=== PATIENT | male | born 1940 | race Caucasian/White ===

== ENCOUNTER 2017-06-22 06:12 | Day surgery (SDC) | payer OTHER ==
[~2017-06-22] VITALS: Ht 198.1 cm; Wt 153.6 kg
[~2017-06-22 06:12] MED LIST: ACET325 PO; AMLO5 PO; AMOCLA875 PO; ASPI325 PO; Amlodipine Besy10 MG PO; BP MED; BYDUREON2 MG SQ; CEPH500 PO; CLOP75 PO; CRUTCH4 USE; Cinnamon500 MG PO; GLIM2 PO; GLIP5ER PO; HYDACE5 PO; HYDR1TAB94 PO; INSDET100 SQ; INSLI100I SC; INSUASPI SC; INSULANPEN SC; LEVFLO500 PO; LEVO750 PO; LISI20; LISI20 PO; LOSA50 PO; MAXZIDE PO; MECL25 PO; METF500; METF500 PO; METO50 PO; Metformin HCl1000 MG PO; Novolog Fl100 UNIT/1 INJ; OMEP20ER PO; ONDA4ODT MM; ONDA8ODT MM; PIOG30 PO; PROACE100 PO; RXHYDACE PO; RXONDA4ODT MM; SACC250C PO; STOOL SOFTENER; TIOT18 INH; UNK ABX; [UNRECOGNIZED DRUG - OTHER]; [UNRECOGNIZED DRUG - REMARK]
[2017-06-22 06:51] LABS: BASOPHILS ABSOLUTE AUTO 0.02 K/mm3 (0.00-0.23); BASOPHILS PERCENT AUTO 0 % (0-2); EOSINOPHILS ABSOLUTE AUTO 0.22 K/mm3 (0.00-0.68); EOSINOPHILS PERCENT AUTO 3 % (0-6); Hemoglobin 13.2 g/dL (13.5-17.5); IMMATURE GRAN ABSOLUTE AUTO 0.03 K/mm3 (0.00-0.10); IMMATURE GRAN PERCENT AUTO 0 % (0-1); LYMPHOCYTES ABSOLUTE AUTO 1.53 K/mm3 (0.84-5.20); LYMPHOCYTES PERCENT AUTO 20 % (21-46); MONOCYTES ABSOLUTE AUTO 0.44 K/mm3 (0.16-1.47); MONOCYTES PERCENT AUTO 6 % (4-13); Mean Corpuscular HGB 28.1 pg (26.0-34.0); Mean Corpuscular HGB Conc 32.2 g/dL (31.5-36.5); Mean Corpuscular Volume 87 fL (80-100); Mean Platelet Volume 11.6 fL (9.1-12.4); NEUTROPHILS ABSOLUTE AUTO 5.34 K/mm3 (1.96-9.15); NEUTROPHILS PERCENT AUTO 70 % (41-73); Platelet Count 115 K/mm3 (150-400); RDW Coefficient Variation 13.4 % (11.7-14.2); RDW Standard Deviation 42.7 fL (35.1-46.3); Red Blood Cell Count 4.69 M/mm3 (4.30-5.90); White Blood Cell Count 7.58 K/mm3 (4.00-11.30)
[2017-06-22 06:54] LABS: International Normalized Ratio 1.07; Prothrombin Time Results 11.1 Sec (9.7-11.5)
[2017-06-22 07:05] LABS: Anion Gap 8 mmol/L (6-16); Blood Urea Nitrogen 31 mg/dL (8-24); Bun/Creatinine Ratio 25.2 (12.0-20.0); CO2, Blood 21 mmol/L (21-32); Calcium, Blood 8.5 mg/dL (8.5-10.1); Chloride, Blood 108 mmol/L (98-108); Creatinine, Blood 1.23 mg/dL (0.60-1.20); Glomerular Filtration Rate >60 (60-); Glucose, Blood 273 mg/dL (70-99); Potassium, Blood 4.6 mmol/L (3.5-5.5); Sodium, Blood 137 mmol/L (136-145)
== END 2017-06-22 12:20 | disposition home or self-care (01) ==
LOC: MHTC 06:12
PROVIDERS: Internal Medicine Interventional Cardiology
PROC: B211YZZ Fluoroscopy of Multiple Coronary Arteries using Other Contrast (ICD-10-PCS; principal; 2017-06-22)
PROC: 4A023N7 Measurement of Cardiac Sampling and Pressure, Left Heart, Percutaneous Approach (ICD-10-PCS; principal; 2017-06-22)
DX: I25.119 Atherosclerotic heart disease of native coronary artery with unspecified angina pectoris (principal); E11.9 Type 2 diabetes mellitus without complications; E78.00 Pure hypercholesterolemia, unspecified; G47.33 Obstructive sleep apnea (adult) (pediatric); Z87.891 Personal history of nicotine dependence; E66.01 Morbid (severe) obesity due to excess calories; I11.9 Hypertensive heart disease without heart failure
CPT/HCPCS: 80048; 85025; 85610; 93005; 93010; 93454; 99152; 99153; C1769; C1894; J1644; J2250; J3010; J7030; Q9967

== ENCOUNTER 2020-11-25 21:44 | Emergency (ER) | payer OTHER ==
[~2020-11-25] VITALS: Ht 200.7 cm; Wt 149.7 kg
[2020-11-26] MEDS ORDERED: BASAGLAR K100 UNIT/3 SC (01:53)
[2020-11-26] MEDS ORDERED: INSULIN LI100 UNIT/6 (01:53)
[2020-11-26] MEDS ORDERED: [UNRECOGNIZED DRUG - MIXTURE] (01:53)
[2020-11-26] MEDS ORDERED: [UNRECOGNIZED DRUG - SUPPLY] (01:53)
[2020-11-26] MEDS ORDERED: LOSA50 PO (01:54)
[2020-11-26] MEDS ORDERED: Norco 5-325 Ta1 EACH PO (02:50)
== END 2020-11-26 03:22 | disposition home or self-care (01) ==
LOC: ER 21:44
DX: S52.124A Nondisplaced fracture of head of right radius, initial encounter for closed fracture (principal); S02.2XXA Fracture of nasal bones, initial encounter for closed fracture; S01.111A Laceration without foreign body of right eyelid and periocular area, initial encounter; I10 Essential (primary) hypertension; E11.9 Type 2 diabetes mellitus without complications; I25.10 Atherosclerotic heart disease of native coronary artery without angina pectoris; Z88.8 Allergy status to other drugs, medicaments and biological substances; Z88.5 Allergy status to narcotic agent; Z79.899 Other long term (current) drug therapy; Z79.82 Long term (current) use of aspirin; Z79.4 Long term (current) use of insulin; W22.8XXA Striking against or struck by other objects, initial encounter; Y92.480 Sidewalk as the place of occurrence of the external cause
CPT/HCPCS: 12011; 70450; 70486; 73070; 99284-25

== ENCOUNTER → 2021-01-24 | Outpatient (CLI) | payer OTHER ==
[~2021-01-24] MED LIST changes: +BASAGLAR K100 UNIT/3 SC; +INSULIN LI100 UNIT/6; +Norco 5-325 Ta1 EACH PO; +[UNRECOGNIZED DRUG - MIXTURE]; +[UNRECOGNIZED DRUG - SUPPLY]
== END | disposition home or self-care (01) ==
LOC: LAB SHORT 13:23 → LAB 13:23
PROVIDERS: Internal Medicine Nephrology
DX: N18.30 Chronic kidney disease, stage 3 unspecified (principal); D63.1 Anemia in chronic kidney disease; N25.81 Secondary hyperparathyroidism of renal origin; E55.9 Vitamin D deficiency, unspecified; E78.00 Pure hypercholesterolemia, unspecified; R76.9 Abnormal immunological finding in serum, unspecified; R94.5 Abnormal results of liver function studies; R94.6 Abnormal results of thyroid function studies; D51.8 Other vitamin B12 deficiency anemias; D52.8 Other folate deficiency anemias; D50.9 Iron deficiency anemia, unspecified
CPT/HCPCS: 81050; 82570; 84156

== ENCOUNTER 2021-06-09 17:52 | Observation (INO) | payer OTHER ==
[~2021-06-09] VITALS: Ht 198.1 cm; Wt 158.8 kg
[~2021-06-09 17:52] MED LIST changes: +CINNAMON BARK PO; -Cinnamon500 MG PO
[2021-06-09 18:50] LABS: BASOPHILS ABSOLUTE AUTO 0.05 K/mm3 (0.00-0.23); BASOPHILS PERCENT AUTO 1 % (0-2); EOSINOPHILS ABSOLUTE AUTO 0.34 K/mm3 (0.00-0.68); EOSINOPHILS PERCENT AUTO 4 % (0-6); Hematocrit 39.1 % (37.0-53.0); Hemoglobin 12.4 g/dL (13.5-17.5); IMMATURE GRAN ABSOLUTE AUTO 0.03 K/mm3 (0.00-0.10); IMMATURE GRAN PERCENT AUTO 0 % (0-1); LYMPHOCYTES PERCENT AUTO 21 % (21-46); MONOCYTES ABSOLUTE AUTO 0.49 K/mm3 (0.16-1.47); MONOCYTES PERCENT AUTO 6 % (4-13); Mean Corpuscular HGB Conc 31.7 g/dL (31.5-36.5); Mean Corpuscular Volume 88 fL (80-100); Mean Platelet Volume 12.4 fL (9.1-12.4); NEUTROPHILS ABSOLUTE AUTO 5.84 K/mm3 (1.96-9.15); NEUTROPHILS PERCENT AUTO 68 % (41-73); Platelet Count 174 K/mm3 (150-400); RDW Coefficient Variation 14.6 % (11.7-14.2); RDW Standard Deviation 46.1 fL (35.1-46.3); Red Blood Cell Count 4.43 M/mm3 (4.30-5.90); White Blood Cell Count 8.55 K/mm3 (4.00-11.30)
[2021-06-09 19:11] LABS: Albumin, Blood 3.3 g/dL (3.4-5.0); Albumin/Globulin Ratio 0.7 (0.8-1.8); Bilirubin, Total 0.7 mg/dL (0.1-1.0); Bun/Creatinine Ratio 22.7 (12.0-20.0); Calcium, Blood 8.6 mg/dL (8.5-10.1); Creatinine, Blood 1.5 mg/dL (0.60-1.20); Globulin, Blood 4.6 g/dL (2.2-4.0); Potassium, Blood 5.9 mmol/L (3.5-5.5); Total Protein, Blood 7.9 g/dL (6.4-8.2)
[2021-06-10] MEDS ORDERED: SODIUM BICARBO PO (02:10)
[2021-06-10] MEDS ORDERED: BUMETANIDE2 M6 PO (02:10)
[2021-06-10 05:32] LABS: BASOPHILS ABSOLUTE AUTO 0.03 K/mm3 (0.00-0.23); BASOPHILS PERCENT AUTO 0 % (0-2); EOSINOPHILS ABSOLUTE AUTO 0.25 K/mm3 (0.00-0.68); EOSINOPHILS PERCENT AUTO 4 % (0-6); Hematocrit 36.8 % (37.0-53.0); Hemoglobin 11.7 g/dL (13.5-17.5); IMMATURE GRAN ABSOLUTE AUTO 0.02 K/mm3 (0.00-0.10); IMMATURE GRAN PERCENT AUTO 0 % (0-1); LYMPHOCYTES ABSOLUTE AUTO 1.46 K/mm3 (0.84-5.20); LYMPHOCYTES PERCENT AUTO 21 % (21-46); MONOCYTES ABSOLUTE AUTO 0.42 K/mm3 (0.16-1.47); MONOCYTES PERCENT AUTO 6 % (4-13); Mean Corpuscular HGB 28.1 pg (26.0-34.0); Mean Corpuscular HGB Conc 31.8 g/dL (31.5-36.5); Mean Corpuscular Volume 88 fL (80-100); Mean Platelet Volume 12.2 fL (9.1-12.4); NEUTROPHILS ABSOLUTE AUTO 4.68 K/mm3 (1.96-9.15); NEUTROPHILS PERCENT AUTO 68 % (41-73); Platelet Count 131 K/mm3 (150-400); RDW Coefficient Variation 14.6 % (11.7-14.2); Red Blood Cell Count 4.17 M/mm3 (4.30-5.90); White Blood Cell Count 6.86 K/mm3 (4.00-11.30)
--- NOTE | 2021-06-10 05:38 | NUR ---
Patient is alert and oriented x4 ambulates with walker. hx of fall, educated pt about calling when ambulating to the restroom to assist him with walking. Patient understands, but insist on walking by himself and sometimes does not use walker. Skin intact. Patient complains of abdominal and chest pain, but does not want to take pain medication. BP is elevated, informed MD. Hydralazine IV ordered for SBP greater than 160s. Patient is now resting on bed in lowest position. Patient is incontinent in urine due to Hx of prostate cancer. Call light within reach.
[2021-06-10 05:52] LABS: Albumin, Blood 2.9 g/dL (3.4-5.0); Albumin/Globulin Ratio 0.7 (0.8-1.8); Bilirubin, Total 0.4 mg/dL (0.1-1.0); Bun/Creatinine Ratio 22.1 (12.0-20.0); Calcium, Blood 8.7 mg/dL (8.5-10.1); Creatinine, Blood 1.4 mg/dL (0.60-1.20); Globulin, Blood 4.4 g/dL (2.2-4.0); Potassium, Blood 5.4 mmol/L (3.5-5.5); Total Protein, Blood 7.3 g/dL (6.4-8.2)
[2021-06-10 06:07] LABS: CPK Creatine Kinase 153 U/L (39-308)
[2021-06-10 13:56] LABS: CPK Creatine Kinase 151 U/L (39-308)
--- NOTE | 2021-06-10 17:48 | NUR ---
ALERT. ORIENTED. INDEPENDENT IN ROOM. ABLE TO MAKE NEEDS KNOWN. DENIES ANY C.P/DISCOMFORT. UNLABORED RESPIRATIONS. TELE ON AND HAS BEEN PACED RYTHM. TROPONINS NEGATIVE. COOPERATIVE. PLEASANT. SECOND PART OF STRESS TOMORROW MORNING WITH PATIENT AWARE NO CAFFEINE AFTER DINNER. WCTM
--- NOTE | 2021-06-11 05:33 | NUR ---
SHIFT SUMMARY PATIENT ALERT AND ORIENTED. HAD NO COMPLAINTS OF PAIN OR SHORTNESS OF BREATH. NO ACUTE ISSUES NOTED OVERNIGHT. CALL LIGHT WITHIN REACH. REPORT GIVEN TO ONCOMING RN.
[2021-06-11 06:11] LABS: CHOL/HDL RATIO 4.8; Cholesterol 172 mg/dL (50-200); HDL Cholesterol 36 mg/dL (>39); LDL/HDL RATIO 2.8; Low Density Lipoprotein Chol 101 mg/dL (0-110); Triglycerides 174 mg/dL (30-160); Very Low Density Lipoprot Chol 34 mg/dL (6-32)
--- NOTE | 2021-06-11 08:23 | NUR ---
pt having a stress test this am, a/ox3, pleasant and cooperative with care, follows commands well, denies chest pain, states he slept ok, lungs are clear t/o, on r/a, resp even and unlabored, no cough noted, hrr, tele in place running paced rhythm, no edema noted, ppp+2, cap refill <3sec, vs stable, afebrile, iv site is clear and patent, btx4, abd round soft nontender, voids without diff, skin c/w/d, maew, up indep, delores, call light in reach.
[2021-06-11] MEDS ORDERED: NORVASC5 MG PO (16:22)
[2021-06-11] MEDS ORDERED: BASAGLAR K100 UNIT/4 SC (16:25)
[2021-06-11] MEDS ORDERED: NOVOLOG FL100 UNIT/3 SC ×2 (16:26→16:31)
[2021-06-11] MEDS ORDERED: ROSU5 PO (16:27)
--- NOTE | 2021-06-11 16:59 | NUR ---
Pt has been discharged to home, [facility], iv removed intact, went over instructions with him, he verbalized understanding, gave a copy of a medium sliding scale to him and explained it. he verbalized understanding, and has all his belongings, and hard copy script for glucose monitoring supplies. left via wheelchair with ticket agent in attendence.
== END 2021-06-11 16:51 | disposition home or self-care (01) ==
LOC: ER 17:52 → MEDS 17:53 → ER 06-10 00:47 → MEDS 06-10 00:47
PROVIDERS: Family Medicine; Physician Assistant; ADMIT Internal Medicine
DX: I24.9 Acute ischemic heart disease, unspecified (principal); I44.30 Unspecified atrioventricular block; I25.10 Atherosclerotic heart disease of native coronary artery without angina pectoris; I12.9 Hypertensive chronic kidney disease with stage 1 through stage 4 chronic kidney disease, or unspecified chronic kidney disease; E11.22 Type 2 diabetes mellitus with diabetic chronic kidney disease; N18.30 Chronic kidney disease, stage 3 unspecified; E78.5 Hyperlipidemia, unspecified; Z91.14 Patient's other noncompliance with medication regimen; Z95.0 Presence of cardiac pacemaker; Z95.5 Presence of coronary angioplasty implant and graft; Z79.4 Long term (current) use of insulin; Z79.82 Long term (current) use of aspirin
CPT/HCPCS: 36415; 71045; 71275; 78452; 80053; 80061; 82550; 82947; 83036; 83690; 83880; 84484; 85025; 93005; 93010; 93017; 93306; 96374; 96376; 99285-25; A9270; A9500; J0280; J0360; J1650; J1815; J2785; J7030; Q9957; Q9967

== ENCOUNTER 2021-09-28 07:27 | Day surgery (SDC) | payer OTHER ==
[~2021-09-28] VITALS: Ht 200.7 cm; Wt 154.0 kg
[~2021-09-28 07:27] MED LIST changes: +BASAGLAR K100 UNIT/4 SC; +BUMETANIDE2 M6 PO; +NORVASC5 MG PO; +NOVOLOG FL100 UNIT/3 SC; +ROSU5 PO; +SODIUM BICARBO PO
[2021-09-28 08:05] LABS: BASOPHILS ABSOLUTE AUTO 0.04 K/mm3 (0.00-0.23); BASOPHILS PERCENT AUTO 0 % (0-2); EOSINOPHILS ABSOLUTE AUTO 0.24 K/mm3 (0.00-0.68); EOSINOPHILS PERCENT AUTO 2 % (0-6); Hematocrit 40.3 % (37.0-53.0); Hemoglobin 13.1 g/dL (13.5-17.5); IMMATURE GRAN ABSOLUTE AUTO 0.04 K/mm3 (0.00-0.10); IMMATURE GRAN PERCENT AUTO 0 % (0-1); LYMPHOCYTES ABSOLUTE AUTO 1.69 K/mm3 (0.84-5.20); LYMPHOCYTES PERCENT AUTO 17 % (21-46); MONOCYTES ABSOLUTE AUTO 0.55 K/mm3 (0.16-1.47); MONOCYTES PERCENT AUTO 6 % (4-13); Mean Corpuscular HGB 28.4 pg (26.0-34.0); Mean Corpuscular HGB Conc 32.5 g/dL (31.5-36.5); Mean Corpuscular Volume 87 fL (80-100); Mean Platelet Volume 11.6 fL (9.1-12.4); NEUTROPHILS ABSOLUTE AUTO 7.36 K/mm3 (1.96-9.15); NEUTROPHILS PERCENT AUTO 74 % (41-73); Platelet Count 115 K/mm3 (150-400); RDW Standard Deviation 44.3 fL (35.1-46.3); Red Blood Cell Count 4.62 M/mm3 (4.30-5.90); White Blood Cell Count 9.92 K/mm3 (4.00-11.30)
[2021-09-28 08:20] LABS: Bun/Creatinine Ratio 25.4 (12.0-20.0); Calcium, Blood 8.8 mg/dL (8.5-10.1); Creatinine, Blood 1.73 mg/dL (0.60-1.20); Potassium, Blood 4.9 mmol/L (3.5-5.5)
--- NOTE | 2021-09-28 09:30 | NUR ---
pt report from bryant robin. pt a&ox4. repeat v/s. tr band in place w/ 11 in the band.
--- NOTE | 2021-09-28 13:15 | NUR ---
PT RETURNED TO RECOVERY ROOM POST PACEMAKER GEN CHANGE OUT. PT AWAKE AND CONVERSING APPROPRIATELY; DENIES PAIN POST PROCEDURE. MONITOR PACED 70'S, B/P 169/84, AFEBRILE, SPO2 97% RA. L CHEST NO SWELLING/HEMATOMA, TELFA AND TEGADERM DRSG INTACT. R RADIAL SITE NO SWELLING/HEMATOMA, TR BAND IN PLACE; RUE POSITIVE PLEUTH. PT'S AT BEDSIDE, ATTENTIVE.
--- NOTE | 2021-09-28 14:03 | NUR ---
REPORT TO YEISON ROSALES; ALL QUESTIONS ANSWERED.
--- NOTE | 2021-09-28 14:10 | NUR ---
RIGHT RADIAL TR BAND FULLY DEFLATED. NO BLEEDING OR SWELLING NOTED. VSS. LEFT CHEST SITE REMAINS CLEAN, DRY, INTACT.
--- NOTE | 2021-09-28 14:55 | NUR ---
LEFT CHEST SITE AND RIGHT RADIAL SITE CLEAN, DRY, AND INTACT. NO BLEEDING OR SWELLING NOTED AT EITHER SITE. SPLINT AND SLING IN PLACE ON RIGHT ARM. IV DC'D, CATH INTACT. PT AND SPOUSE VERBALIZED UNDERSTANDING OF DC INSTRUCTIONS AND FOLLOW UP INFO. PT OUT TO CAR VIA WHEELCHAIR.
== END 2021-09-28 15:41 | disposition home or self-care (01) ==
LOC: MHTC 07:27
PROVIDERS: Internal Medicine Cardiovascular Disease
DX: I25.110 Atherosclerotic heart disease of native coronary artery with unstable angina pectoris (principal); I44.30 Unspecified atrioventricular block; Z45.2 Encounter for adjustment and management of vascular access device; G47.33 Obstructive sleep apnea (adult) (pediatric); D69.6 Thrombocytopenia, unspecified; E78.00 Pure hypercholesterolemia, unspecified; I77.810 Thoracic aortic ectasia; E11.22 Type 2 diabetes mellitus with diabetic chronic kidney disease; I12.9 Hypertensive chronic kidney disease with stage 1 through stage 4 chronic kidney disease, or unspecified chronic kidney disease; N18.30 Chronic kidney disease, stage 3 unspecified; Z95.0 Presence of cardiac pacemaker; Z90.49 Acquired absence of other specified parts of digestive tract; Z79.4 Long term (current) use of insulin; Z86.39 Personal history of other endocrine, nutritional and metabolic disease; Z88.5 Allergy status to narcotic agent
CPT/HCPCS: 33228; 80048; 82947; 85025; 85347; 93454; 99152; 99153; C1769; C1781; C1785; C1894; J0690; J1644; J2250; J3010; J7030; J7040; Q9967

== ENCOUNTER 2021-10-13 08:45 | Day surgery (SDC) | payer OTHER ==
[~2021-10-13] VITALS: Ht 200.7 cm; Wt 147.6 kg
[~2021-10-13 08:45] MED LIST changes: -ASPI325 PO; +ASPI81CH PO
--- NOTE | 2021-10-13 14:11 | NUR ---
PT RETURNED TO RECOVERY ROOM IN RECLINER. RIGHT RADIAL TR BAND SITE SOFT NON-TENDER WITH NO HEMATOMA, NO PULSATILE BLEEDING WITH WRIST BOARD IN PLACE. PT DENIES CHEST PAIN. CALL LIGHT IN REACH. PT HAS TACHY CARDIA; SEE NEW ORDERS.
--- NOTE | 2021-10-13 14:33 | NUR ---
NO CHANGES TO RIGHT TR BAND SITE. PT DRINKING COFFEE.
--- NOTE | 2021-10-13 14:37 | NUR ---
PT'S IN ROOM.
--- NOTE | 2021-10-13 17:33 | NUR ---
PT ARRIVED FROM UNIX ADMINISTRATOR THIS AFTERNOON POST ANGIOGRAM WITH STENT PLACEMENT TO RCA. PT DOES REPORT SOME MILD DISCOMFORT TO LEFT CHEST WALL, ACCORDING TO UNIX ADMINISTRATOR STAFF THIS PAIN WAS EXPECTED WITH THE EXTENT OF WORK THAT WAS PERFORMED TO PLACE STENT. PT A/O X4, ANSWERING QUESTIONS APPROPRIATELY IN FULL SENTENCES. RT RADIAL SITE FREE OF BLEEDING, THERE IS A SMALL HEMATOMA TO THE SITE THAT IS NOT GROWING, THE AREA IS MARKED SO THAT IT CAN BE MONITORED. WILL BEGIN RECOVERING TR BAND SOON. PT WITH GOOD APPETITE. DENIES SOB. HTN NOTED, DR LEBRON CALLED NEW ORDERS OBTAINED.
[2021-10-14 04:07] LABS: Hematocrit 36.5 % (37.0-53.0); Mean Corpuscular HGB 28.5 pg (26.0-34.0); Mean Corpuscular HGB Conc 32.9 g/dL (31.5-36.5); Mean Corpuscular Volume 87 fL (80-100); Mean Platelet Volume 11.1 fL (9.1-12.4); Platelet Count 120 K/mm3 (150-400); RDW Coefficient Variation 13.8 % (11.7-14.2); RDW Standard Deviation 43.7 fL (35.1-46.3); Red Blood Cell Count 4.21 M/mm3 (4.30-5.90); White Blood Cell Count 8.81 K/mm3 (4.00-11.30)
[2021-10-14 04:29] LABS: Bun/Creatinine Ratio 22.7 (12.0-20.0); Calcium, Blood 8.6 mg/dL (8.5-10.1); Creatinine, Blood 1.63 mg/dL (0.60-1.20); Potassium, Blood 5.7 mmol/L (3.5-5.5)
--- NOTE | 2021-10-14 05:22 | NUR ---
SHIFT SUMMARY PT ALERT AND ORIENTED X4. AFEBRILE. HR PACED 80'S MOST OF NIGHT. BETWEEN 2200 AND 0000 PT WOULD SUSTAIN HR AT 130 FOR OVER 15 MINUTES AT A TIME. BY HIGH TO START SHIFT WITH SYSTOLIC IN 180'S. RELIEF W/ ADDITIONAL NORVASC DOSE AND HYDRALAZINE. TR BAND OF AT 2300. SITE C/D/I. PT DENIES CP. INDEPENDENT FOR ADLS. IN BED SLEEPING WITH CALL ALARM AT SIDE, WILL CONTINUE TO MONITOR UNTIL REPORT GIVEN TO DAYSHIFT RN
--- NOTE | 2021-10-14 08:30 | NUR ---
PT A/O X4, ANSWERING ALL QUESTIONS APPROPRIATELY IN FULL SENTENCES. NADN. VSS. DENIES CP OR SOB. PACED RHYTHM AT 80 ON MONITOR. LS CLEAR T/O. INDEPENDANT TO BATHROOM AND TO SHOWER THIS AM. DENIES PAIN T/O BODY. RT RADIAL SIDE IS SOFT, SOVERED, DRY, NO BLEEDING, BRUISING NOTED THAT SEEMS IMPROVED FROM LAST NOC, NO ACTIVE BLEEDING OR DRAINAGE FROM SITE, DENIES ANY PAIN. SKIN OTHERWISE PWD AND INTACT.
[2021-10-14] MEDS ORDERED: CLOP75 PO (09:20)
== END 2021-10-14 10:47 | disposition home or self-care (01) ==
LOC: MHTC 08:45 → PCU 13:39 → MHTC 10-14 10:47
PROVIDERS: Internal Medicine Interventional Cardiology
DX: I44.30 Unspecified atrioventricular block (principal); I25.110 Atherosclerotic heart disease of native coronary artery with unstable angina pectoris; E78.5 Hyperlipidemia, unspecified; G47.33 Obstructive sleep apnea (adult) (pediatric); D69.6 Thrombocytopenia, unspecified; I77.810 Thoracic aortic ectasia; N18.30 Chronic kidney disease, stage 3 unspecified; I12.9 Hypertensive chronic kidney disease with stage 1 through stage 4 chronic kidney disease, or unspecified chronic kidney disease; E11.22 Type 2 diabetes mellitus with diabetic chronic kidney disease; E78.00 Pure hypercholesterolemia, unspecified; Z95.0 Presence of cardiac pacemaker; Z86.39 Personal history of other endocrine, nutritional and metabolic disease; Z88.5 Allergy status to narcotic agent; Z88.8 Allergy status to other drugs, medicaments and biological substances
CPT/HCPCS: 36415; 76937; 80048; 82947; 85027; 85347; 92978; 99152; 99153; A9270; C1725; C1753; C1761; C1769; C1874; C1887; C1894; C9602; J0360; J1644; J1815; J2250; J3010; J7030; J7040; Q9967

== ENCOUNTER 2021-10-15 11:58 | Observation (INO) | payer OTHER ==
[~2021-10-15] VITALS: Ht 200.7 cm; Wt 154.2 kg
[2021-10-15 12:45] LABS: BASOPHILS ABSOLUTE AUTO 0.06 K/mm3 (0.00-0.23); BASOPHILS PERCENT AUTO 1 % (0-2); EOSINOPHILS ABSOLUTE AUTO 0.25 K/mm3 (0.00-0.68); EOSINOPHILS PERCENT AUTO 3 % (0-6); Hematocrit 38.8 % (37.0-53.0); Hemoglobin 12.5 g/dL (13.5-17.5); IMMATURE GRAN ABSOLUTE AUTO 0.04 K/mm3 (0.00-0.10); IMMATURE GRAN PERCENT AUTO 1 % (0-1); LYMPHOCYTES ABSOLUTE AUTO 1.83 K/mm3 (0.84-5.20); LYMPHOCYTES PERCENT AUTO 21 % (21-46); MONOCYTES ABSOLUTE AUTO 0.43 K/mm3 (0.16-1.47); MONOCYTES PERCENT AUTO 5 % (4-13); Mean Corpuscular HGB 28.2 pg (26.0-34.0); Mean Corpuscular HGB Conc 32.2 g/dL (31.5-36.5); Mean Corpuscular Volume 88 fL (80-100); Mean Platelet Volume 11.8 fL (9.1-12.4); NEUTROPHILS ABSOLUTE AUTO 6.09 K/mm3 (1.96-9.15); NEUTROPHILS PERCENT AUTO 70 % (41-73); Platelet Count 158 K/mm3 (150-400); RDW Coefficient Variation 13.8 % (11.7-14.2); RDW Standard Deviation 44.3 fL (35.1-46.3); Red Blood Cell Count 4.43 M/mm3 (4.30-5.90)
[2021-10-15 13:03] LABS: Albumin, Blood 3.4 g/dL (3.4-5.0); Albumin/Globulin Ratio 0.8 (0.8-1.8); Bilirubin, Total 0.7 mg/dL (0.1-1.0); Bun/Creatinine Ratio 21.7 (12.0-20.0); Calcium, Blood 8.5 mg/dL (8.5-10.1); Creatinine, Blood 2.03 mg/dL (0.60-1.20); Globulin, Blood 4.3 g/dL (2.2-4.0); Total Protein, Blood 7.7 g/dL (6.4-8.2)
[2021-10-15 17:29] LABS: Creatine Kinase MB 7.9 ng/mL (0.0-3.6); Creatine Kinase MB Index 3.8 (0.0-4.0)
--- NOTE | 2021-10-15 23:28 | NUR ---
ADMIT NOTE RECEIVED HANDOFF FROM MERCHANDISE PICKUP/RECEIVING ASSOCIATE ZENIA. PT ARRIVED TO FLOOR VIA GURNEY. PT ORIENTED TO UNIT. CALL BUTTON WITHIN REACH. PERSONAL POSSESSIONS ARE WITH PT.
--- NOTE | 2021-10-16 04:36 | NUR ---
SHIFT SUMMARY ADMITTED FOR CHEST PAIN/HYPOTENSION - RESOLVED. FULL CODE. STENT PLACED 2 DAYS AGO. RIGHT RADIAL ACCESS IS TENDER TO PALPATION. PACER IN PLACE, INTERROGATED AND ADJUSTED IN ER. TELEMETRY: PACED @ 81 BPM. A&O X4. INDEPENDENT IN ROOM. NS @ 150 ML/HR INFUSING. ADA DIET. WILL PASS ON TO DAY RN - NEED FOR AC CHEMSTICKS ORDER. CARDIOLOGY CONSULT WAS CONTACTED BY ER DOCTOR. TROPONINS TRENDING DOWN
[2021-10-16 05:21] LABS: BASOPHILS ABSOLUTE AUTO 0.04 K/mm3 (0.00-0.23); BASOPHILS PERCENT AUTO 1 % (0-2); EOSINOPHILS ABSOLUTE AUTO 0.26 K/mm3 (0.00-0.68); EOSINOPHILS PERCENT AUTO 3 % (0-6); Hematocrit 38.4 % (37.0-53.0); Hemoglobin 12.2 g/dL (13.5-17.5); IMMATURE GRAN ABSOLUTE AUTO 0.03 K/mm3 (0.00-0.10); IMMATURE GRAN PERCENT AUTO 0 % (0-1); LYMPHOCYTES PERCENT AUTO 20 % (21-46); MONOCYTES ABSOLUTE AUTO 0.62 K/mm3 (0.16-1.47); MONOCYTES PERCENT AUTO 8 % (4-13); Mean Corpuscular HGB 28.4 pg (26.0-34.0); Mean Corpuscular HGB Conc 31.8 g/dL (31.5-36.5); Mean Corpuscular Volume 89 fL (80-100); Mean Platelet Volume 11.1 fL (9.1-12.4); NEUTROPHILS ABSOLUTE AUTO 5.26 K/mm3 (1.96-9.15); NEUTROPHILS PERCENT AUTO 68 % (41-73); Platelet Count 116 K/mm3 (150-400); RDW Coefficient Variation 13.8 % (11.7-14.2); RDW Standard Deviation 44.4 fL (35.1-46.3); White Blood Cell Count 7.71 K/mm3 (4.00-11.30)
[2021-10-16 07:25] LABS: Albumin, Blood 3.1 g/dL (3.4-5.0); Albumin/Globulin Ratio 0.8 (0.8-1.8); Bilirubin, Total 0.7 mg/dL (0.1-1.0); Calcium, Blood 8.2 mg/dL (8.5-10.1); Creatinine, Blood 1.87 mg/dL (0.60-1.20); Total Protein, Blood 7.1 g/dL (6.4-8.2)
--- NOTE | 2021-10-16 13:29 | NUR ---
DISCHARGE SUMMARY PT AxOx4. PLEASANT AND COOPERATIVE WITH CARE. PT DISCHARGING HOME TODAY WITH . PT GIVEN DC INSTRUCTIONS INCLUDING DC MEDICATION LIST, FOLLOW UP APPOINTMENTS AND PATIENT EDUCATION. PT AND VERBALIZE UNDERSTANDING. VITALS REVIEWED. PT DENIES PAIN THIS SHIFT. PT DC SAFELY WITH PARKING LOT MANAGER ESCORT.
== END 2021-10-16 14:30 | disposition home or self-care (01) ==
LOC: ER 11:58 → MEDS 11:59
PROVIDERS: Family Medicine; Physician Assistant; Student in an Organized Health Care Education/Training Program; ADMIT Internal Medicine
DX: I21.A1 Myocardial infarction type 2 (principal); R00.0 Tachycardia, unspecified; R74.8 Abnormal levels of other serum enzymes; E87.5 Hyperkalemia; E87.1 Hypo-osmolality and hyponatremia; I25.10 Atherosclerotic heart disease of native coronary artery without angina pectoris; I13.0 Hypertensive heart and chronic kidney disease with heart failure and stage 1 through stage 4 chronic kidney disease, or unspecified chronic kidney disease; I50.30 Unspecified diastolic (congestive) heart failure; N18.32 Chronic kidney disease, stage 3b; E11.22 Type 2 diabetes mellitus with diabetic chronic kidney disease; D63.1 Anemia in chronic kidney disease; E87.2 Acidosis; I44.30 Unspecified atrioventricular block; G47.33 Obstructive sleep apnea (adult) (pediatric); E66.01 Morbid (severe) obesity due to excess calories; D69.6 Thrombocytopenia, unspecified; I77.810 Thoracic aortic ectasia; E78.5 Hyperlipidemia, unspecified; Z95.5 Presence of coronary angioplasty implant and graft; Z88.5 Allergy status to narcotic agent; Z88.8 Allergy status to other drugs, medicaments and biological substances; Z79.82 Long term (current) use of aspirin; Z79.4 Long term (current) use of insulin; Z79.02 Long term (current) use of antithrombotics/antiplatelets; Z79.899 Other long term (current) drug therapy
CPT/HCPCS: 36415; 71046; 80053; 82550; 82553; 82947; 83690; 83880; 84484; 85025; 93005; 93010; 96372; 99285-25; A9270; G0378; J1650; J1815; J7030

== ENCOUNTER → 2024-03-20 | Outpatient (CLI) | payer OTHER ==
[2024-03-20 13:13] LABS: BASOPHILS ABSOLUTE AUTO 0.04 K/mm3 (0.00-0.23); BASOPHILS PERCENT AUTO 1 % (0-2); EOSINOPHILS ABSOLUTE AUTO 0.09 K/mm3 (0.00-0.68); EOSINOPHILS PERCENT AUTO 2 % (0-6); Hemoglobin 10.8 g/dL (13.5-17.5); IMMATURE GRAN ABSOLUTE AUTO 0.09 K/mm3 (0.00-0.10); IMMATURE GRAN PERCENT AUTO 2 % (0-1); LYMPHOCYTES ABSOLUTE AUTO 0.86 K/mm3 (0.84-5.20); LYMPHOCYTES PERCENT AUTO 15 % (21-46); MONOCYTES ABSOLUTE AUTO 0.42 K/mm3 (0.16-1.47); MONOCYTES PERCENT AUTO 7 % (4-13); Mean Corpuscular HGB 27.4 pg (26.0-34.0); Mean Corpuscular HGB Conc 30.9 g/dL (31.5-36.5); Mean Corpuscular Volume 89 fL (80-100); NEUTROPHILS ABSOLUTE AUTO 4.44 K/mm3 (1.96-9.15); NEUTROPHILS PERCENT AUTO 75 % (41-73); Platelet Count 105 K/mm3 (150-400); RDW Coefficient Variation 14.9 % (11.7-14.2); RDW Standard Deviation 47.7 fL (35.1-46.3); Red Blood Cell Count 3.94 M/mm3 (4.30-5.90); White Blood Cell Count 5.94 K/mm3 (4.00-11.30)
[2024-03-20 13:33] LABS: Albumin, Blood 2.8 g/dL (3.4-5.0); Albumin/Globulin Ratio 0.6 (0.8-1.8); Bilirubin, Total 0.8 mg/dL (0.1-1.0); Bun/Creatinine Ratio 16.4 (12.0-20.0); Calcium, Blood 8.3 mg/dL (8.5-10.1); Creatinine, Blood 2.01 mg/dL (0.60-1.20); Globulin, Blood 4.5 g/dL (2.2-4.0); Potassium, Blood 4.4 mmol/L (3.5-5.5); Thyroid Stimulating Hormone 4.436 uIU/mL (0.360-4.800); Total Protein, Blood 7.3 g/dL (6.4-8.2)
== END ==
LOC: LAB SHORT 13:07 → LAB 13:07
PROVIDERS: Chiropractor
DX: J18.9 Pneumonia, unspecified organism (principal); R53.83 Other fatigue; R60.0 Localized edema
CPT/HCPCS: 80053; 83880; 84443; 84484; 85025; 85379